=== PATIENT | female | born 1995 | race Hispanic/Latino ===

== ENCOUNTER 2019-10-21 00:49 | Emergency (ER) | payer SELFPAY ==
[2019-10-21 01:37] LABS: Bacteria/HPF None Seen HPF (None Seen); Bilirubin Negative (Negative); Blood, Urine 2+ (Negative); Clarity Clear (Clear); Glucose, Urine (Dipstick) Normal (Negative); Leukocyte 75 Leu/uL (Negative); Nitrite Negative (Negative); Protein, Urine (Dipstick) Negative (Neg-Trace); Squamous Epithelial 0-3 HPF (0-3); Urobilinogen Normal mg/dL (Less than 2)
[2019-10-21] MEDS ORDERED: Morphine 4 MG/ML VIAL ONE (01:37)
[2019-10-21] MEDS ORDERED: Ondansetron PF 4 MG/2 ML Vial ONE (01:38)
[2019-10-21 01:51] LABS: #Basophils 0.1 thou/uL (0.0-0.2); #Eosinphils 0.6 thou/uL (0.0-0.7); #Lymphocytes 2.7 thou/uL (1.20-3.40); #Monocytes 0.8 thou/uL (0.11-0.59); #Neutrophils 5.5 thou/uL (1.40-6.50); %Basophils 0.8 % (0.0-1.0); %Eosinophils 6.1 % (0.0-10.0); %Lymphocytes 28.2 % (21.0-51.0); %Monocytes 8.2 % (0.0-10.0); %Neutrophils 56.6 % (42.0-75.0); Hemoglobin 9.8 g/dL (12.0-16.0); Mean Corpuscular HGB CONC 33.9 g/dL (32.0-36.0); Mean Corpuscular Hemoglobin 29.1 pg (27.0-31.0); Mean Corpuscular Volume 86.1 fL (78.0-98.0); Mean Platelet Volume 7.4 fL (7.4-10.4); Platelet Count 427 thou/uL (130-400); RBC Distribution Width 13.1 % (11.5-14.5); Red Blood Cell (RBC) Count 3.35 mill/uL (4.20-5.40); White Blood Cell (WBC) Count 9.7 thou/uL (4.8-10.8)
[2019-10-21 02:04] LABS: ALT (SGPT) 11 U/L (8-55); AST (SGOT) 13 U/L (5-34); Albumin 3.3 g/dL (3.5-5.0); Alkaline Phosphatase 152 U/L (40-110); Anion Gap 14 mmol/L (10-20); BUN (Urea Nitrogen) 11 mg/dL (7.0-18.7); Bilirubin, Total 0.3 mg/dL (0.2-1.2); Calc. Creatinine Clearance 0 mL/min (70-130); Calcium 9.1 mg/dL (7.8-10.44); Carbon Dioxide 22 mmol/L (22-29); Chloride 107 mmol/L (98-107); Estimated GFR-MDRD Greater than 90; Glucose 88 mg/dL (70-105); Potassium 3.7 mmol/L (3.5-5.1); Protein, Total 7.3 g/dL (6.0-8.3); Sodium 139 mmol/L (136-145)
--- NOTE | 2019-10-21 08:11 | CT ---
PRELIMINARY REPORT/[facility]IOLOGY/EMERGENCY AFTER HOURS PROCEDURE: EXAM: CT Abdomen and Pelvis with Intravenous Contrast CLINICAL HISTORY: Pt reports worsening RLQ abd pain and right flank pain over the past several days. She [place] [facility] [place] States pain has become much worse since onset. D enies n/v/d, fever, urinary symptoms, vag bleeding/discharge, or any other associated symptoms. Exace rbated by palpation. No alleviating factors. TECHNIQUE: Axial computed tomography images of the abdomen and pelvis with intravenous contrast. CONTRAST: With; ISOVUE 370,100mL COMPARISON: None provided. FINDINGS: LUNG BASES: No basilar airspace consolidation or pleural effusion. LIVER: The liver is enlarged measuring 18.8 cm in length. Punctate 3 mm calcified granuloma in the r ight lobe of the liver. GALLBLADDER AND BILE DUCTS: Cholecystectomy clips in the gallbladder fossa. No ductal dilation. PANCREAS: Unremarkable. SPLEEN: Unremarkable. ADRENAL GLANDS: Unremarkable. KIDNEYS, URETERS, AND BLADDER: Unremarkable. No hydronephrosis or nephrolithiasis. No ureteral or lang dder calculi. STOMACH AND BOWEL: No obstruction. No wall thickening. No CT evidence of colitis or acute diverticuli tis. APPENDIX: No CT evidence for appendicitis. PERITONEUM: Small amount of free fluid in the pelvis. No free air. LYMPH NODES: No lymphadenopathy. REPRODUCTIVE: The uterus is enlarged. Adjacent fat stranding anteriorly. VASCULATURE: No aortic aneurysm. BONES: No fracture or suspicious osseous abnormality. ABDOMINAL WALL AND SOFT TISSUES: Fat stranding and soft tissue emphysema in the lower ventral abdomin al wall. IMPRESSION: The uterus is enlarged with adjacent fat stranding and post surgical changes related to a recent section. Soft tissue swelling and emphysema in the lower ventral abdominal wall rel ated to the recent section. Hepatomegaly with fat infiltration. ELECTRONICALLY SIGNED BY: Bao Marks MD Oct 21, 2019 2:20:17 AM CDT FINAL REPORT CT ABDOMEN AND PELVIS: I agree with the preliminary report provided. There is a post gravid uterus with some inflammation o f the surrounding parametrium as well as the lower abdominal wall with scattered locules of gas withi n the abdominal wall. There is low-density fluid filling the endometrial canal versus residual endom etrial proliferation from the patient's recent post gravid state. Findings may all be post procedura l in nature and related to the post gravid uterus; however, a component of superimposed infection can not be entirely excluded. No internal drainable fluid collection is grossly evident. A normal appen rene is seen within the right lower quadrant of the abdomen. A small amount of free fluid is present within the lower pelvis. POS: BH
[2019-10-21] MEDS ORDERED: Iopamidol-370 76% 500 ML 1 ML ONE (09:11)
== END 2019-10-21 02:49 | disposition home or self-care (01) ==
LOC: ERS 00:49
DX: R10.31 Right lower quadrant pain (principal); Z87.442 Personal history of urinary calculi
CPT/HCPCS: 36415; 74177; 80053; 81003; 81015; 85025; 96374; 96375; J2270; J2405; Q9967

== ENCOUNTER 2021-11-22 18:42 | Emergency (ER) | payer MEDICAID, SELFPAY ==
[2021-11-22 20:26] LABS: Bilirubin Negative (Negative); Blood, Urine Negative (Negative); Clarity Clear (Clear); Glucose, Urine (Dipstick) 100 mg/dL (Negative); Ketone, Urine Negative (Negative); Leukocyte Negative Leu/uL (Negative); Nitrite Negative (Negative); Protein, Urine (Dipstick) 10 mg/dL (Neg-Trace); Specific Gravity, Urine 1.031 (1.002-1.036); Urobilinogen Normal mg/dL (Less than 2); pH, Urine 6.5 (5.0-9.0)
[2021-11-22 20:28] LABS: Pregnancy Test - Urine (BHCG) POSITIVE (Negative); Pregu Control Background? CLEAR/WHITE (CLR/WHITE); Pregu Control Bar Appear? YES (CONTROL BAR); Specific Gravity 1.031 (1.002-1.036)
[2021-11-22] MEDS ORDERED: Acetaminophen 500 MG TAB ONE (20:34)
[2021-11-22 20:37] LABS: #Eosinphils 0.2 thou/uL (0.0-0.7); #Lymphocytes 2.5 thou/uL (1.20-3.40); #Monocytes 0.7 thou/uL (0.11-0.59); #Neutrophils 6.7 thou/uL (1.40-6.50); %Basophils 0.4 % (0.0-1.0); %Eosinophils 1.5 % (0.0-10.0); %Lymphocytes 24.8 % (21.0-51.0); %Monocytes 6.9 % (0.0-10.0); %Neutrophils 66.4 % (42.0-75.0); Hemoglobin 10.6 g/dL (12.0-16.0); Mean Corpuscular HGB CONC 31.7 g/dL (32.0-36.0); Mean Corpuscular Hemoglobin 25.6 pg (27.0-31.0); Mean Corpuscular Volume 80.7 fL (78.0-98.0); Mean Platelet Volume 8.8 fL (7.4-10.4); Platelet Count 253 thou/uL (130-400); RBC Distribution Width 14.8 % (11.5-14.5); Red Blood Cell (RBC) Count 4.13 mill/uL (4.20-5.40); White Blood Cell (WBC) Count 10.1 thou/uL (4.8-10.8)
[2021-11-22 20:58] LABS: ALT (SGPT) 30 U/L (8-55); AST (SGOT) 13 U/L (5-34); Albumin 3.6 g/dL (3.5-5.0); Alkaline Phosphatase 71 U/L (40-110); Anion Gap 13 mmol/L (10-20); BUN (Urea Nitrogen) 8 mg/dL (7.0-18.7); Bilirubin, Total 0.2 mg/dL (0.2-1.2); Calc. Creatinine Clearance 0 mL/min (70-130); Calcium 8.8 mg/dL (7.8-10.44); Carbon Dioxide 22 mmol/L (22-29); Chloride 107 mmol/L (98-107); Estimated GFR 128; Globulin 3.4 g/dL (2.4-3.5); Glucose 116 mg/dL (70-105); Lipase 30 U/L (8-78); Potassium 3.5 mmol/L (3.5-5.1); Sodium 138 mmol/L (136-145)
== END 2021-11-22 21:24 | disposition home or self-care (01) ==
LOC: ERS 18:42
DX: O99.891 Other specified diseases and conditions complicating pregnancy (principal); R10.31 Right lower quadrant pain; R10.32 Left lower quadrant pain; O34.81 Maternal care for other abnormalities of pelvic organs, first trimester; N83.11 Corpus luteum cyst of right ovary; Z3A.01 Less than 8 weeks gestation of pregnancy
CPT/HCPCS: 36415; 76856; 80053; 81003; 81025; 83690; 84702; 85025; 87077; 87086; 87186; 96360; 96361

== ENCOUNTER 2022-05-31 19:25 | Emergency (ER) | payer SELFPAY ==
[2022-05-31 21:06] LABS: #Eosinphils 0.1 thou/uL (0.0-0.7); #Lymphocytes 2.4 thou/uL (1.20-3.40); #Monocytes 0.6 thou/uL (0.11-0.59); #Neutrophils 6.4 thou/uL (1.40-6.50); %Basophils 0.2 % (0.0-1.0); %Eosinophils 1.2 % (0.0-10.0); %Lymphocytes 25.1 % (21.0-51.0); %Neutrophils 67.5 % (42.0-75.0); Hemoglobin 10.4 g/dL (12.0-16.0); Mean Corpuscular HGB CONC 33.7 g/dL (32.0-36.0); Mean Corpuscular Hemoglobin 26.4 pg (27.0-31.0); Mean Corpuscular Volume 78.2 fl (78.0-98.0); Mean Platelet Volume 9.1 fL (7.4-10.4); Platelet Count 281 10x3/uL (130-400); RBC Distribution Width 17.2 % (11.5-14.5); Red Blood Cell (RBC) Count 3.96 mill/uL (4.20-5.40); White Blood Cell (WBC) Count 9.5 10x3/uL (4.8-10.8)
[2022-05-31 21:28] LABS: ALT (SGPT) 16 U/L (8-55); AST (SGOT) 19 U/L (5-34); Albumin 3.2 g/dL (3.5-5.0); Alkaline Phosphatase 154 U/L (40-110); Anion Gap 14 mmol/L (10-20); BUN (Urea Nitrogen) 6 mg/dL (7.0-18.7); Bilirubin, Total 0.3 mg/dL (0.2-1.2); Calc. Creatinine Clearance 0 mL/min (70-130); Calcium 8.6 mg/dL (7.8-10.44); Carbon Dioxide 18 mmol/L (22-29); Chloride 106 mmol/L (98-107); Estimated GFR 132; Globulin 3.8 g/dL (2.4-3.5); Glucose 78 mg/dL (70-105); Potassium 3.8 mmol/L (3.5-5.1); Sodium 134 mmol/L (136-145)
== END 2022-05-31 21:42 | disposition short-term general hospital (02) ==
LOC: ERS 19:25
DX: O60.10X0 Preterm labor with preterm delivery, unspecified trimester, not applicable or unspecified (principal); Z3A.00 Weeks of gestation of pregnancy not specified
CPT/HCPCS: 36415; 80053; 85025; 86900; 86901; 99284